=== PATIENT | male | born 1950 ===

== ENCOUNTER 2018-06-18 08:30 | Day surgery (SDC) | payer OTHER ==
[2018-06-17 11:26] VITALS: BMI 32.2
[2018-06-18] MEDS ORDERED: Lactated Ringer's 500 ML IV SCH (08:45)
[2018-06-18] MEDS ORDERED: Propofol 10 mg/ml Inj (20 ML) ONE (11:09)
--- NOTE | 2018-06-18 11:19 | CP.SDSHP ---
Same Day Surgery H & P - History Proposed Procedure: colonoscopy - Previous Medical/Surgical History Cardiac: Hypertension Endocrine/Metabolic: Diabetes - Allergies Allergies: Allergies No Known Allergies Allergy (Verified 06/17/18 11:25) - Physical Exam Vital Signs: Vital Signs 06/18/18 08:50 Temperature 98.9 F Pulse Rate 89 Respiratory 16 Rate Blood Pressure 170/90 H O2 Sat by Pulse 100 Oximetry - Date & Time Date: 06/18/18 Time: 11:19 Short Stay Discharge - Short Stay Discharge Admitting Diagnosis/Reason for Visit: SCREENING Disposition: HOME/ ROUTINE
[2018-06-18 13:03] VITALS: TEMP 98.2
[2018-06-18 13:04] VITALS: O2SAT 100
[2018-06-18 13:10] VITALS: BP 168/93; PULSE 78; RESP 20
== END 2018-06-18 13:00 | disposition home or self-care (01) ==
LOC: C.ENDO 08:30
PROVIDERS: ATTEND Colon & Rectal Surgery
DX: Z12.11 Encounter for screening for malignant neoplasm of colon (principal); K57.30 Diverticulosis of large intestine without perforation or abscess without bleeding; K64.8 Other hemorrhoids
CPT/HCPCS: 45378; 82948; J2001; J2704; J7120

== ENCOUNTER 2018-07-20 10:15 | Outpatient (CLI) | payer OTHER | END 2018-07-20 10:16 | disposition home or self-care (01) | LOC: C.LAB 10:15 ==